=== PATIENT | female | born 1965 | race Caucasian/White ===

== ENCOUNTER → 2016-10-13 | Outpatient (CLI) | payer OTHER ==
[~2016-10-13] MED LIST: FERR324T5 OR; FERROUS SULFATE OR; MULTIVIT PO; TYLENOL #3 OR
--- NOTE | 2016-10-13 18:20 | REP ---
Pelvic sonography: History: Left lower quadrant abdominal pain. Findings: Transabdominal and transvaginal scanning are performed. Comparison is made with prior study from April 30, 2010. Uterine dimensions are normal at 7.0 x 2.8 x 4.5 cm. Endometrial echo is 0.3 cm thick and centrally placed. Bladder anaya are smooth. There is a small quantity of fluid in the cul-de-sac. A subcentimeter fibroid is suspected along the left lateral uterine myometrium. Normal ovaries are seen. Right ovary measures 1.4 x 0.8 x 1.0 cm. The left ovary has dimensions of 2.7 x 1.4 x 1.7 cm. Impression: Subcentimeter fibroid suspected on the left side of the uterus. Tiny sliver of cul-de-sac fluid. Normal ovaries.
== END ==
LOC: M WHC 10:24
PROVIDERS: ATTEND Nurse Practitioner Family
DX: R10.32 Left lower quadrant pain (principal)

== ENCOUNTER → 2024-01-02 | Outpatient (CLI) | payer OTHER | LOC: M WUC 11:53 | PROVIDERS: ATTEND Student in an Organized Health Care Education/Training Program | DX: M25.571 Pain in right ankle and joints of right foot (principal) ==